=== PATIENT | female | born 1990 | race Hispanic/Latino ===

== ENCOUNTER 2016-09-17 17:27 | Emergency (ER) | payer OTHER ==
[~2016-09-17] VITALS: Ht 154.9 cm; Wt 81.8 kg
[2016-09-17 18:06] VITALS: BP 125/85; PULSE 88; RESP 16; O2SAT 98
--- NOTE | 2016-09-17 20:18 | ED.REPORT ---
HPI-Headache Date of Service September 17, 2016 ED Provider: Pam RojasO. A 26 year old female with a medical history including migraines presents to the ED with a headache onset 1100 yesterday. Associated symptoms include hot flashes , photophobia, neck pain, nausea, vomiting, and insomnia. The patient denies neck stiffness, weakness, numbness, or other symptoms. Her symptoms are similar to previous migraines, which she experiences approximately once a week. Nursing Notes Stated Complaint: MIGRAINE Chief Complaint: Headache Nursing Notes Reviewed: Yes Allergies: Coded Allergies: No Known Allergies (Verified , 09/17/16) General Time Seen by MD: 20:17 Chief Complaint Headache Hx Obtained From: Patient Arrived By: Walk-in Sudden in Onset?: No Onset Occurred: Yesterday Symptom Duration: Since onset Location: : Generalized Quality: Painful Severity: Current: Moderate Severity: Maximum: Moderate Pertinent Negative: Relieved by nothing Related History: Reports: Headache, migraine hx Recent Healthcare: No recent doctor visit Similar Sx Previous: Yes Past Medical History Past Medical History Diverticulitis Anxiety Depression Suicide Attempt (2009) Migraines Past Surgical History Reports: Tubal ligation Smoking History Unknown if Ever Smoker Social History Other Social History: Good social support Ambulatory Status Independent Review of Systems Review of Systems Note: + Hot flashes - Neck stiffness Constitutional: Denies: Fever Eyes: Reports: Photophobia GI: Reports: Nausea, Vomiting Musculoskeletal: Reports: Neck pain Neurologic: Reports: Headache, Denies: Numbness, Weakness Psychiatric: Reports: Insomnia Complete sys rev & neg: except as marked. Respiratory: Denies: Non-productive cough, Shortness of breath Physical Exam Initial Vital Signs Vital Signs (First) Date Time Temp Pulse Resp B/P Pulse Ox O2 Delivery O2 Flow Rate FiO2 09/17/16 18:06 37.2 88 16 125/85 98 Room Air Initial VS: Reviewed Respiratory: Breath sounds normal, Clear to auscultation, No respiratory distress Cardiovascular: Regular rate & rhythm, Heart sounds normal Skin: Warm, Dry, No cyanosis Psychiatric: Mood/affect normal, Behavior normal, Normal thought content General/Constitutional: Awake, Alert Head / Eyes: Atraumatic, Normocephalic, EOMI Pupils: Positive: Photophobia L, Photophobia R Neck: Supple, No meningismus, Full range of motion Neurologic: Oriented X3, Speech NL, No motor deficits, No sensory deficits, CN II - XII intact Interpretation & Diagnostics Lab Results Interpretation Result Diagram: 09/17/16201009/17/162010 Test 09/17/16 20:11 White Blood Count 8.6th/mm3 (3.8-10.1) Red Blood Count 4.71mil/mm3 (3.90-5.20) Hemoglobin 13.4g/dL (12.0-15.6) Hematocrit 40.1% (35.0-46.0) Mean Corpuscular Volume 85.1fL (81-100) Mean Corpuscular Hemoglobin 28.5pg (27.0-35.0) Mean Corpuscular Hemoglobin Concent 33.4% (32.0-37.0) Red Cell Distribution Width 13.4% (12.3-15.4) Platelet Count 295bil/L (150-400) Neutrophils (%) (Auto) 60.2% (40-74) Lymphocytes (%) (Auto) 30.9% (14-46) Monocytes (%) (Auto) 7.8% (4-12) Eosinophils (%) (Auto) 0.7% (0-5) Basophils (%) (Auto) 0.2% (0-3) Sodium Level 136mEq/L (134-144) Potassium Level 3.5mEq/L (3.5-5.2) Chloride Level 97mEq/L (97-108) Carbon Dioxide Level 23mmol/L (18-29) Blood Urea Nitrogen 12mg/dL (6-20) Creatinine 0.61mg/dL (0.57-1.00) Estimat Glomerular Filtration Rate 170mL/min (>59) Glucose Level 98mg/dL (60-99) Calcium Level 9.4mg/dL (8.5-10.1) Total Bilirubin 0.8mg/dL (0.0-1.2) Aspartate Amino Transf (AST/SGOT) 26U/L (0-50) Alanine Aminotransferase (ALT/SGPT) 15U/L (0-32) Alkaline Phosphatase 63U/L (25-150) Total Protein 8.4g/dL (6.4-8.4) Albumin 4.7g/dL (3.4-5.0) Hold Bull Top Tube Received (Received) CT Head Interpretation IMPRESSION: 1. No acute intracranial process. Dictated by: Summer Domínguez M.D. on 09/17/2016 at 21:29 Study: Head CT no contrast Interpretation / Wet Read by: Interpret - Radiologist Re-Eval/Medical Decision Med Decision/Clinical Course Normal CT scan. Normal labs. Patient was medicated she felt much better. Meningitis and subarachnoid hemorrhage seems very unlikely. As such she will be discharged home. Re-Evaluation/Progress : Time of Eval: 21:47 )( Patient Status: Condition improved, Pain improved Re-Evaluation/Progress Note: Patient feels much better and requests discharge. Discussed with patient CT and lab results, diagnosis, and plan for discharge. Follow-up and return to the ER instructions given. Patient agrees with plan for care and all questions were addressed. Counseled Regarding: Diagnosis, Lab results, Need for follow-up, When/why to return to ED Discharge & Departure Impression: Primary Impression: Headache Headache type: unspecified Headache chronicity pattern: acute headache Intractability: not intractable Qualified Code: R51 - Headache Disposition: Home Discharge Condition All VS Reviewed: Yes Condition: Improved Patient Instructions: Acute Headache (GEN) Additional Instructions: Thank you for entrusting us with your care. Your CT and labs were reassuring for any serious illness today. Rest tonight. Do not drive as you have been given sedating medication. Take Imitrex one every eight hours with a dose of Benadryl at the onset of your next headache. Call your primary care provider tomorrow for a follow-up appointment. Return to the ER with any new or worsening symptoms including fever and neck stiffness. Referrals: Davon Kohler MD (PCP) Scribe Attestation Portions of this note were transcribed by Dinora Gasca. I, Dr. Marcus, personally performed the history, physical exam, and medical decision-making; I reviewed and confirmed the accuracy of the information in the transcribed note. Signed by: Makenzie Altamirano, 09/17/2016, 21:57 copies to: Davon Kohler MD, Todd P DO September 17, 2016 20:18 DINORA GASCA September 17, 2016 20:36
[2016-09-17 20:31] LABS: BASOPHILS % (AUTO) 0.2 % (0-3); EOSINOPHILS % (AUTO) 0.7 % (0-5); MONOCYTES % (AUTO) 7.8 % (4-12); Mean Corpuscular Hemoglobin 28.5 pg (27.0-35.0); Mean Corpuscular Volume 85.1 fL (81-100); NEUTROPHILS % (AUTO) 60.2 % (40-74); Platelet Count 295 bil/L (150-400)
[2016-09-17] MEDS ORDERED: Dexamethasone Inj 10 MG in 0.9% Sodium Chloride-Pha MIX 50 ML IV ONE (20:35)
[2016-09-17] MEDS ORDERED: Haloperidol 5 mg/mL Inj IVPUSH ONE (20:35)
[2016-09-17 21:07] VITALS: BP 101/62; PULSE 81; RESP 20; O2SAT 97
--- NOTE | 2016-09-17 21:31 | DRSVH ---
PROCEDURE: CT BRAIN WITHOUT CONTRAST ([id number]) INDICATIONS: headache TECHNIQUE: Noncontrast 4.5 mm thick angled axial sections acquired from the foramen magnum to the vertex, with c oronal reformats. COMPARISON: None. FINDINGS: Image quality: Excellent. CSF spaces: Basal cisterns are patent. No extra-axial fluid collections. Ventricles are normal in size and shape. Brain: No midline shift. No intracranial masses or hemorrhage. Rao-white matter interface is norm al. Skull and face: Calvarium and visualized facial bones are intact, without suspicious lesions. Sinuses: Visualized sinuses and mastoids are clear. IMPRESSION: 1. No acute intracranial process. Dictated by: Summer Domínguez M.D. on 09/17/2016 at 21:29 Approved by: Summer Domínguez M.D. on 09/17/2016 at 21:30
== END 2016-09-17 21:57 | disposition home or self-care (01) ==
LOC: SED 17:27
DX: R51 Headache (principal); F41.9 Anxiety disorder, unspecified
CPT/HCPCS: 36415; 70450; 80053; 85025; 96365; 96375; 99285; J1100; J1200; J1630; J1885